=== PATIENT | female | born 1945 | race Caucasian/White ===

== ENCOUNTER 2019-06-16 12:23 | Inpatient (IN) | payer MEDICARE ==
[~2019-06-16] VITALS: Ht 162.6 cm; Wt 79.4 kg
[2019-06-16 14:36] VITALS: BP 146/69
[2019-06-16 15:43] LABS: BASOPHILS 0.6 % (0-2); EOSINOPHILS 3.2 % (0-7); HEMATOCRIT 34.7 % (36.0-48.0); HEMOGLOBIN 11.2 g/dL (12-16); IMMATURE GRANULOCYTES 0.2 % (0-5); LYMPHOCYTES 30.8 % (15-50); MCH 28.4 pg (26.0-34.0); MCHC 32.3 g/dL (31.0-37.0); MCV 87.8 fL (80.0-100.0); MEAN PLATELET VOLUME 9.4 fL (7.4-10.4); MONOCYTES 7.4 % (2-11); NEUTROPHILS 57.8 % (40-80); PLATELET COUNT 245 10x3/uL (130-400); RBC 3.95 10x6/uL (4.00-5.40); RDW 14.4 % (11.5-14.5); WBC 6.2 10x3/uL (4.8-10.8)
[2019-06-16 15:53] LABS: ANION GAP 9.5 mmol/L (8-16); CALCIUM 8.9 mg/dL (8.5-10.1); CARBON DIOXIDE 30.5 mmol/L (21.0-32.0); CREATININE - SERUM 0.8 mg/dL (0.6-1.3)
[2019-06-16 16:07] LABS: BILIRUBIN - TOTAL 0.24 mg/dL (0.2-1.3); PROTEIN - SERUM 6.1 g/dL (6.4-8.2)
[2019-06-16 17:39] LABS: APPEARANCE CLEAR (CLEAR); BILIRUBIN NEGATIVE (NEGATIVE); COLOR YELLOW (YELLOW); GLUCOSE NEGATIVE (NEGATIVE); KETONE NEGATIVE (NEGATIVE); NITRITE NEGATIVE (NEGATIVE); PROTEIN NEGATIVE (NEGATIVE); UROBILINOGEN NORMAL (NORMAL)
[2019-06-16 20:00] VITALS: BP 154/70
[2019-06-16] MEDS ORDERED: LEVOTHYROXINE75 MCG PO (20:17)
[2019-06-16] MEDS ORDERED: GLUCOPHAGE500 MG PO ×2 (20:19)
[2019-06-16] MEDS ORDERED: GABAPENTIN300 MG PO (20:20)
[2019-06-16] MEDS ORDERED: NEURONTIN600 MG PO (20:23)
[2019-06-16] MEDS ORDERED: CYMBALTA30 MG PO (20:24)
[2019-06-16 20:26] VITALS: BP 154/70; BMI 30.1
[2019-06-16] MEDS ORDERED: VALTREX1000 MG PO (21:00)
[2019-06-16] MEDS ORDERED: BAYER CHEWABLE81 MG PO (21:01)
[2019-06-17] VITALS: BP 138/52
[2019-06-17 04:00] VITALS: BP 142/48
--- NOTE | 2019-06-17 06:15 | NUR ---
ASSESSED AT THE TIME OF ADMISSION. SHE IS ALERT AND ORIENTED, ABLE TO VERBALIZE NEEDS. HER HAS REMAINED WITH HER, SLEEPING IN THE BEDSIDE CHAIR. WE HAVE GIVEN HER MORPHINE FOR PAIN OFTEN WE CAN BUT SHE STATES IT IS NOT CONTROLLING HER PAIN. THE PAIN IN HER LEFT LEG FROM THE ANKLE UP TO ABOVE THE KNEE IS HER WORSE PAIN AND SHE STATED IT HAS BEEN HURTING FOR MONTHS. WHEN ASKED IF SHE INJURIED IT SHE STATED NO. THE LEFT FOOT HAS 2-5 TOES BROKEN AND SHE SAID IT HURT BUT NOT BAD HER LEG. 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 AT THIS TIME SHE IS IN THE CHAIR SITTING WITH HER
[2019-06-17 06:28] LABS: BASOPHILS 0.7 % (0-2); EOSINOPHILS 3.1 % (0-7); HEMATOCRIT 36.8 % (36.0-48.0); HEMOGLOBIN 11.5 g/dL (12-16); IMMATURE GRANULOCYTES 0.3 % (0-5); LYMPHOCYTES 35.9 % (15-50); MCH 27.9 pg (26.0-34.0); MCHC 31.3 g/dL (31.0-37.0); MCV 89.3 fL (80.0-100.0); MEAN PLATELET VOLUME 10.2 fL (7.4-10.4); MONOCYTES 7.7 % (2-11); NEUTROPHILS 52.3 % (40-80); PLATELET COUNT 248 10x3/uL (130-400); RBC 4.12 10x6/uL (4.00-5.40); RDW 14.7 % (11.5-14.5); WBC 5.9 10x3/uL (4.8-10.8)
[2019-06-17 06:45] LABS: % SATURATION 11 % (15-55); IRON 40 ug/dl (35-150); TOTAL IRON BIND CAPACITY 342 ug/dl (260-445); UNSAT IRON BIND CAPACITY 302 ug/dl (150-375)
[2019-06-17 07:10] LABS: ANION GAP 11.6 mmol/L (8-16); CARBON DIOXIDE 27.9 mmol/L (21.0-32.0); CREATININE - SERUM 0.8 mg/dL (0.6-1.3); MAGNESIUM - SERUM 1.6 mg/dL (1.8-2.4); PHOSPHOROUS 3.8 mg/dL (2.5-4.9); POTASSIUM - SERUM 4.5 mmol/L (3.5-5.1); THYROID STIMULATING HORMONE 3.27 uIU/mL (0.36-3.74)
[2019-06-17 08:36] VITALS: BP 167/54
--- NOTE | 2019-06-17 08:37 | NUR ---
PATIENT SITTING IN CHAIR. LORENA AT BEDSIDE. BED ALARM REFUSAL WAIVER SIGNED. STATES PAIN IS A 7 OUT OF 10 ON THE PAIN SCALE. CL IN REACH. WCTM
--- NOTE | 2019-06-17 12:30 | NUR ---
LORENA IN ROOM. PATIENT SITTING ON SIDE OF BED TO EAT. TALKED WITH Stephanie CHI APN AND DR ROCHA ABOUT ANXIETY MED FOR PATIENT WHEN SHE GOES TO MRI. CL IN REACH. WCTM
[2019-06-17 13:31] VITALS: BP 138/43
[2019-06-17 16:42] VITALS: BP 157/65
--- NOTE | 2019-06-17 17:08 | NUR ---
PATIENT HAD ME FEEL ALONG HER LEFT UPPER FEMUR. BUMPS ALONG HER MUSCLE. REPORTED TO Stephanie CHI APN. CL IN REACH. IN ROOM. NO NEEDS AT THIS TIME.
--- NOTE | 2019-06-17 19:00 | NUR ---
BEDSIDE REPORT RECEIVED AND CARE OF PT ASSUMED. PT LYING IN LOW HAWLEY'S POSITION. IV TO LEFT HAND SALINE LOCKED. TELEMETRY IN PLACE PER ORDER. WILL MONITOR FOR NEEDS.
[2019-06-17 20:00] VITALS: BP 137/67
--- NOTE | 2019-06-17 20:15 | NUR ---
HS MEDICATIONS GIVEN. FSBS 122 THIS CHECK REQUIRING NO COVERAGE PER SLIDING SCALE.
--- NOTE | 2019-06-17 20:20 | NUR ---
HS SNACK GIVEN: X2 ORANGE SHERBET.
--- NOTE | 2019-06-17 22:39 | NUR ---
GAVE DILAUDID 2 MG PO PER REQUEST FOR PAIN. WILL MONITOR FOR EFFECTIVENESS.
--- NOTE | 2019-06-18 01:07 | NUR ---
PT YELLING AND CRYING OUT THAT PAIN MED ISN'T WORKING. PAGED ONESIMO HARRIS, NAPOLEON AND RECEIVED ONE TIME ORDER FOR DILAUDID 0.5MG IVP FOR BREAKTHROUGH PAIN. MED GIVEN...PT FEELING BETTER AND RESTING NOW. IS AT BEDSIDE.
--- NOTE | 2019-06-18 02:50 | NUR ---
GAVE DILAUDID 2 MG PO PER PRN ORDER, PER PT REQUEST FOR PAIN AT LEVEL 7/10. WILL MONITOR FOR EFFECTIVENESS. IS AT BEDSIDE.
[2019-06-18 04:00] VITALS: BP 124/56
--- NOTE | 2019-06-18 06:10 | NUR ---
PT C/O ITCHING. GAVE LOTION AND POWDER....DID NOT PROVIDE HER WITH RELEIF. PAGED ONESIMO HARRIS, NAPOLEON AND RECEIVED ORDER FOR BENADRYL 25 MG PO Q6 PRN.
[2019-06-18 06:17] LABS: BASOPHILS 0.5 % (0-2); EOSINOPHILS 2.8 % (0-7); HEMATOCRIT 34.8 % (36.0-48.0); HEMOGLOBIN 10.9 g/dL (12-16); IMMATURE GRANULOCYTES 0.2 % (0-5); LYMPHOCYTES 38.7 % (15-50); MCH 27.7 pg (26.0-34.0); MCHC 31.3 g/dL (31.0-37.0); MCV 88.5 fL (80.0-100.0); MEAN PLATELET VOLUME 9.7 fL (7.4-10.4); MONOCYTES 8.2 % (2-11); NEUTROPHILS 49.6 % (40-80); PLATELET COUNT 240 10x3/uL (130-400); RBC 3.93 10x6/uL (4.00-5.40); RDW 14.5 % (11.5-14.5); WBC 5.7 10x3/uL (4.8-10.8)
[2019-06-18 06:40] LABS: CALC OSMOLALITY 283 mosm/kg (275-300); CALCIUM 8.8 mg/dL (8.5-10.1); CARBON DIOXIDE 30.3 mmol/L (21.0-32.0); CHLORIDE - SERUM 106 mmol/L (98-107); CREATININE - SERUM 0.6 mg/dL (0.6-1.3); GLUCOSE 122 mg/dL (74-106); MAGNESIUM - SERUM 1.6 mg/dL (1.8-2.4); PHOSPHOROUS 4.2 mg/dL (2.5-4.9); POTASSIUM - SERUM 4.4 mmol/L (3.5-5.1); SODIUM 141 mmol/L (136-145); UREA NITROGEN 19 mg/dL (7-18); eGFR NON AFRICAN AMERICAN > 90 mL/min (90-120)
--- NOTE | 2019-06-18 08:03 | NUR ---
PATIENT LAYING ON LEFT SIDE. ASSISTED TO BATHROOM AND BACK TO BED. LORENA STEPPED OUT FOR A MINUTE. CL IN REACH. WCTM
[2019-06-18 08:41] VITALS: BP 123/57
[2019-06-18 12:06] VITALS: BP 136/71
[2019-06-18 17:36] VITALS: BP 128/67
--- NOTE | 2019-06-18 19:00 | NUR ---
BEDSIDE REPORT RECEIVED AND CARE OF PT ASSUMED. PT SITTING UP IN CHAIR AT THIS TIME. IV TO LEFT HAND SALINE LOCKED. TELEMETRY IN PLACE AND READING SR AT THIS ASSESSMENT. WILL MONITOR FOR NEEDS.
[2019-06-18 20:00] VITALS: BP 137/59
--- NOTE | 2019-06-18 20:41 | NUR ---
HS MEDICATIONS GIVEN TO INCLUDE DILALUDID 2 MG PO AND BENADRYL PO 25 MG PER REQUEST FOR PAIN MEDICATION.
--- NOTE | 2019-06-18 20:45 | NUR ---
FSBS 132 THIS CHECK REQUIRING NO COVERAGE PER SLIDING SCALE.
--- NOTE | 2019-06-18 23:36 | NUR ---
IV IN LEFT HAND LEAKING. REMOVED WITH CATHETER TIP INTACT AND REPLACED IV TO LEFT AC USING 22 GUAGE CATHETER.
[2019-06-19] VITALS: BP 142/60
[2019-06-19 04:00] VITALS: BP 133/54
--- NOTE | 2019-06-19 04:21 | NUR ---
PT SITTING UP ON SIDE OF BED CRYING IN PAIN.....EVERY 2 HOURS SHE IS SITTING UP CRYING. GAVE DEMERAL 25 MG IVP PER PRN ORDER PER Q 2 HR PRN DOSAGE.
--- NOTE | 2019-06-19 06:11 | NUR ---
PT ASSISTED WITH SHOWER AND ALL LINENS AND GOWN CHANGED.
[2019-06-19 06:20] LABS: BASOPHILS 0.8 % (0-2); EOSINOPHILS 2.4 % (0-7); HEMATOCRIT 34.1 % (36.0-48.0); HEMOGLOBIN 10.7 g/dL (12-16); IMMATURE GRANULOCYTES 0.2 % (0-5); LYMPHOCYTES 29.7 % (15-50); MCH 28.1 pg (26.0-34.0); MCHC 31.4 g/dL (31.0-37.0); MCV 89.5 fL (80.0-100.0); MEAN PLATELET VOLUME 9.8 fL (7.4-10.4); MONOCYTES 10.3 % (2-11); NEUTROPHILS 56.6 % (40-80); PLATELET COUNT 235 10x3/uL (130-400); RBC 3.81 10x6/uL (4.00-5.40); RDW 14.8 % (11.5-14.5); WBC 5.3 10x3/uL (4.8-10.8)
[2019-06-19 06:34] LABS: CALC OSMOLALITY 285 mosm/kg (275-300); CALCIUM 8.8 mg/dL (8.5-10.1); CARBON DIOXIDE 32.5 mmol/L (21.0-32.0); CHLORIDE - SERUM 106 mmol/L (98-107); CREATININE - SERUM 0.7 mg/dL (0.6-1.3); GLUCOSE 136 mg/dL (74-106); PHOSPHOROUS 4.5 mg/dL (2.5-4.9); POTASSIUM - SERUM 4.2 mmol/L (3.5-5.1); SODIUM 141 mmol/L (136-145); UREA NITROGEN 21 mg/dL (7-18); eGFR NON AFRICAN AMERICAN 87 mL/min (90-120)
[2019-06-19 08:11] VITALS: BP 131/46
--- NOTE | 2019-06-19 08:21 | NUR ---
ASSESSMENT DONE. DENIES NEEDS. AT SIDE.
--- NOTE | 2019-06-19 10:34 | NUR ---
I have reviewed this patient and I concur with the Shift Assessment completed by the Licensed Practical Nurse today this shift.
[2019-06-19 13:46] VITALS: Ht 162.6 cm; Wt 79.4 kg
[2019-06-19 14:04] VITALS: BP 132/61
[2019-06-19 16:18] VITALS: BP 146/70
--- NOTE | 2019-06-19 19:00 | NUR ---
BEDSIDE REPORT RECEIVED AND CARE OF PT ASSUMED. PT SITTING UP ON SIDE OF BED VISITING WITH FAMILY MEMBERS. IV TO LEFT AC SALINE LOCKED. TELEMETRY IN PLACE PER ORDER.
--- NOTE | 2019-06-19 19:55 | NUR ---
HS MEDICATIONS GIVEN TO INCLUDE DEMERAL 25 MG IVP PER REQUEST FOR PAIN.
[2019-06-19 20:00] VITALS: BP 115/52
--- NOTE | 2019-06-19 23:02 | NUR ---
GAVE DEMERAL 25 MG IVP AND BENADRYL 25 MG PO PER PT REQUEST FOR PAIN. WILL MONITOR FOR EFFECTIVENESS.
[2019-06-20] VITALS: BP 137/63
[2019-06-20 04:00] VITALS: BP 116/49
[2019-06-20 06:41] LABS: BASOPHILS 0.7 % (0-2); EOSINOPHILS 2.1 % (0-7); HEMOGLOBIN 10.4 g/dL (12-16); IMMATURE GRANULOCYTES 0.2 % (0-5); LYMPHOCYTES 34.3 % (15-50); MCHC 31.5 g/dL (31.0-37.0); MCV 88.7 fL (80.0-100.0); MEAN PLATELET VOLUME 9.6 fL (7.4-10.4); MONOCYTES 12.1 % (2-11); NEUTROPHILS 50.6 % (40-80); PLATELET COUNT 228 10x3/uL (130-400); RBC 3.72 10x6/uL (4.00-5.40); RDW 14.7 % (11.5-14.5); WBC 5.4 10x3/uL (4.8-10.8)
[2019-06-20 06:47] LABS: CALC OSMOLALITY 288 mosm/kg (275-300); CALCIUM 8.9 mg/dL (8.5-10.1); CARBON DIOXIDE 31.4 mmol/L (21.0-32.0); CHLORIDE - SERUM 106 mmol/L (98-107); CREATININE - SERUM 0.7 mg/dL (0.6-1.3); GLUCOSE 118 mg/dL (74-106); MAGNESIUM - SERUM 1.8 mg/dL (1.8-2.4); PHOSPHOROUS 4.5 mg/dL (2.5-4.9); POTASSIUM - SERUM 4.3 mmol/L (3.5-5.1); SODIUM 143 mmol/L (136-145); UREA NITROGEN 20 mg/dL (7-18); eGFR NON AFRICAN AMERICAN 87 mL/min (90-120)
--- NOTE | 2019-06-20 08:00 | NUR ---
ASSESSMENT PER FLOW SHEET. PT IS WITHOUT DISTRESS.SHE HAS SOME ANXIETY. AT BEDSIDE.CALL LIGHT IN REACH
[2019-06-20 08:01] VITALS: BP 141/65
[2019-06-20 13:57] VITALS: BP 124/61; BP 154/57
[2019-06-20 15:53] VITALS: BP 137/58
[2019-06-20 20:52] VITALS: BP 147/52
--- NOTE | 2019-06-21 01:12 | NUR ---
I have reviewed this patient and I concur with the Shift Assessment completed by the Licensed Practical Nurse today this shift.
--- NOTE | 2019-06-21 03:41 | NUR ---
IV INFULTRATED. NEW IV SITED LT HAND 22G. ATTEMPTSX1. PT TOLERATED WELL. WILL CONTINUE PLAN OF CARE. CALL LIGHT IN REACH. BED LOWERED AND LOCKED. AT BEDSIDE.
--- NOTE | 2019-06-21 04:50 | NUR ---
PT RESTING IN BED. EYES CLOSED. AROUSES TO VERBAL STIMULI. PT STATES NO PROBLEMS AT THIS TIME. IV SITE LT HAND DRESSING CLEAN DRY AND INTACT. NO SIGNS OF INFECTION. SKIN CLEAN DRY AND INTACT. BOWEL SOUNDS ACTIVE. LUNG SOUNDS CLEAR. NO LOWER LEG SWELLING PRESENT. WILL CONTINUE PLAN OF CARE. CALL LIGHT IN REACH. BED LOWERED AND LOCKED. BED RAILS UPX2. AT BEDSIDE.
[2019-06-21 05:14] VITALS: BP 122/60
[2019-06-21 06:49] LABS: BASOPHILS 0.4 % (0-2); EOSINOPHILS 2.1 % (0-7); HEMATOCRIT 33.5 % (36.0-48.0); HEMOGLOBIN 10.5 g/dL (12-16); IMMATURE GRANULOCYTES 0.2 % (0-5); LYMPHOCYTES 29.2 % (15-50); MCH 27.9 pg (26.0-34.0); MCHC 31.3 g/dL (31.0-37.0); MCV 89.1 fL (80.0-100.0); MEAN PLATELET VOLUME 9.8 fL (7.4-10.4); MONOCYTES 9.2 % (2-11); NEUTROPHILS 58.9 % (40-80); PLATELET COUNT 255 10x3/uL (130-400); RBC 3.76 10x6/uL (4.00-5.40); RDW 14.8 % (11.5-14.5); WBC 5.7 10x3/uL (4.8-10.8)
[2019-06-21 07:13] LABS: CALC OSMOLALITY 286 mosm/kg (275-300); CALCIUM 8.9 mg/dL (8.5-10.1); CHLORIDE - SERUM 105 mmol/L (98-107); CREATININE - SERUM 0.6 mg/dL (0.6-1.3); GLUCOSE 138 mg/dL (74-106); MAGNESIUM - SERUM 1.7 mg/dL (1.8-2.4); PHOSPHOROUS 4.2 mg/dL (2.5-4.9); POTASSIUM - SERUM 3.8 mmol/L (3.5-5.1); SODIUM 143 mmol/L (136-145); eGFR NON AFRICAN AMERICAN > 90 mL/min (90-120)
[2019-06-21 07:15] LABS: UREA NITROGEN 13 mg/dL (7-18)
--- NOTE | 2019-06-21 08:00 | NUR ---
ASSESSMENT PER FLOW SHEET. PT IS WITHOUT DISTRESS. PAIN MEDS ORDERED PER MAR FOR PAIN IN LOWER BACK AND LEG. AT BEDSIDE.
[2019-06-21 08:57] VITALS: BP 161/59
--- NOTE | 2019-06-21 09:29 | MORECARE ---
CASE MANAGEMENT DISCHARGE SUMMARY PATIENT: VIOLETTE MOREJON UNIT: [id number] ADM DATE: 06/17/19 AGE: 73 : 45 SEX: F ROOM/BED: D.2229 AUTHOR: CHRIS MOONEY PHYSICIAN: REFERRING PHYSICIAN: MORRIS SOMERS MD DATE OF SERVICE: 06/21/19 Discharge Plan Patient Name: VIOLETTE MOREJON [facility] [facility] 1945 Planned Disposition: Home with Home Health Anticipated Discharge Date: Discharge Date: Expected LOS: Initial Reviewer: [email or web address] Initial Review Date: 06/21/2019 Generated: 06/21/19 10:28 am Coverage Notice Reviewer: [id number] Ann Reyes Notice Issued Date-Time: 06/17/2019 11:10 Notice Type: Medicare Outpatient Observation Notice Notice Delivered To: Patient Relationship to Patient: Self Track Repair Person Name: Delivery Method: HAND - Hand Delivered Mary Days: Prior Verbal Notification: Recipient Understood Notice: Yes Recipient Signature: Yes Med Rec Note Co-signed by Attending: Coverage Notice Comment: Patient Name: VIOLETTE MOREJON Page [phone] at 0929 All edits/amendments must be made on the electronic document DICTATION DATE: 06/21/19927 COTTON BROKER: DES 06/21/19927 RPT#: [id number] DC DATE: STATUS: ADM IN [facility] [address] [place] [address] END OF REPORT
--- NOTE | 2019-06-21 09:36 | MORECARE ---
CASE MANAGEMENT DISCHARGE SUMMARY PATIENT: VIOLETTE VIDAL UNIT: [id number] ADM DATE: 06/17/19 AGE: 73 : 45 SEX: F ROOM/BED: D.2229 AUTHOR: CHRIS MOONEY PHYSICIAN: REFERRING PHYSICIAN: MORRIS SOMERS MD DATE OF SERVICE: 06/21/19 Discharge Plan Patient Name: VIOLETTE VIDAL Facility[facility]:[place] : 1945 Planned Disposition: Home with Home Health Anticipated Discharge Date: Discharge Date: Expected LOS: Initial Reviewer: [email or web address] Initial Review Date: 06/21/2019 Generated: 06/21/19 10:36 am Comments DCP- Discharge Planning Updated by [id number]: Nataliia Ochoa on 06/21/19 8:[address] Patient Name: VIOLETTE VIDAL Admission Status: ER Accout number: [id number] Admission Date: 06-17-2019 : 1945 Admission Diagnosis: Attending: MORRIS SOMERS Current LOS: 4 Anticipated DC Date: Planned Disposition: Home with Home Health Primary Insurance: AETNA MEDICARE PPO or HMO Discharge Planning Comments: CM met with patient to complete initial dc planning assessment. CM educated patient on the CM role and verbal consent given by patient to complete assessment. Patient lives at home with her spouse. Patient is having lumbar surgery tomorrow and is unsure of needs. States she would like to go home and resume [facility], but if unable to go home would like rehab at [facility]. She was at [place] in April of last year for 11 days. Patient denied other discharge needs at this time. States she has a walker at home and they have borrowed a wheelchair. She also has a walking boot in the room, understands she is to heel weight bear on foot at this time. CM will continue to follow and will assist as needed with dc plans/needs. Apartment Rental Agent: Nataliia Ochoa DCPIA - Discharge Planning Initial Assessment Updated by [email or web address]: Nataliia Ochoa on 06/21/19 9:31 am * Is the patient Alert and Oriented? Yes * How many steps to enter\exit or inside your home? 1/0 * PCP Mickey Perez * Pharmacy [place] [address] * Preadmission Environment Home with Family * ADLs Partial Dependent * Partial ADLs (Assistance needed) Ambulation * Equipment Cane Walker Wheelchair * List name and contact numbers for known caregivers / representatives who currently or will assist patient after discharge: Rik Vidal - spouse - [phone] or [phone] Traci Juares - DTR - [phone] * Verbal permission to speak to the caregivers and representatives has been obtained from the patient. Yes * Community resources currently utilized Home Health * Please name any agencies selected above. [facility] * Additional services required to return to the preadmission environment? Yes * Can the patient safely return to the preadmission environment? Yes * Has this patient been hospitalized within the prior 30 days at any hospital? No Coverage Notice Reviewer: [email or web address] Ann Reyes Notice Issued Date-Time: 06/17/2019 11:10 Notice Type: Medicare Outpatient Observation Notice Notice Delivered To: Patient Relationship to Patient: Self Plant Pathologist Name: Delivery Method: HAND - Hand Delivered Mary Days: Prior Verbal Notification: Recipient Understood Notice: Yes Recipient Signature: Yes Med Rec Note Co-signed by Attending: Coverage Notice Comment: Reviewer: [id number] - Nataliia Ochoa Notice Issued Date-Time: 06/21/2019 9:34 Notice Type: Patient Choice Letter Notice Delivered To: Patient Relationship to Patient: Self Plant Pathologist Name: Delivery Method: HAND - Hand Delivered Mary Days: Prior Verbal Notification: Recipient Understood Notice: Yes Recipient Signature: Yes Med Rec Note Co-signed by Attending: Coverage Notice Comment: VICKI FOR [facility] OR [facility] FOR SNF Last DP export: 06/21/19 8:29 am Patient Name: VIOLETTE VIDAL Page [phone] at 0936 All edits/amendments must be made on the electronic document DICTATION DATE: 06/21/19935 [place] DIRECTOR: DES 06/21/19935 RPT#: [id number] DC DATE: STATUS: ADM IN [facility] [address] [place] [address] END OF REPORT
[2019-06-21 11:54] VITALS: BP 143/62
[2019-06-21 16:15] VITALS: BP 135/67
--- NOTE | 2019-06-21 16:17 | NUR ---
SLEEPING ON RIGHT SIDE,WITHOUT SIGNS OF DISTRESS.
--- NOTE | 2019-06-21 18:40 | NUR ---
PAIN MEDS ORDERED PER MAR. PT BACK TO BED. REMAINS AT BEDSIDE. CONT PLAN OF CARE
[2019-06-21 19:30] VITALS: BP 156/73
[2019-06-22 00:30] VITALS: BP 140/78
--- NOTE | 2019-06-22 03:22 | NUR ---
PATIENT SITTING UP IN BED WITH AT BEDSIDE. PATIENT COMPLAINS OF PAIN 8 OUT OF 10 IN LEFT LEG. IV TO L FA, SL, NO REDNESS OR SWELLING. BED RAILS X2. BEDSIDE TABLE AND CALL LIGHT WITHIN REACH.
[2019-06-22 05:28] LABS: BASOPHILS 0.6 % (0-2); HEMATOCRIT 31.9 % (36.0-48.0); HEMOGLOBIN 9.9 g/dL (12-16); IMMATURE GRANULOCYTES 0.2 % (0-5); LYMPHOCYTES 28.5 % (15-50); MCH 27.7 pg (26.0-34.0); MCV 89.4 fL (80.0-100.0); MEAN PLATELET VOLUME 9.8 fL (7.4-10.4); MONOCYTES 11.2 % (2-11); NEUTROPHILS 56.5 % (40-80); PLATELET COUNT 251 10x3/uL (130-400); RBC 3.57 10x6/uL (4.00-5.40); WBC 5.3 10x3/uL (4.8-10.8)
[2019-06-22 05:30] VITALS: BP 139/58
[2019-06-22 06:00] LABS: ALBUMIN 2.5 g/dL (3.4-5.0); ALKALINE PHOSPHATASE 107 U/L (46-116); ALT (SGPT) 20 U/L (10-68); BILIRUBIN - TOTAL 0.27 mg/dL (0.2-1.3); CALC OSMOLALITY 288 mosm/kg (275-300); CALCIUM 8.7 mg/dL (8.5-10.1); CARBON DIOXIDE 34.5 mmol/L (21.0-32.0); CHLORIDE - SERUM 107 mmol/L (98-107); CREATININE - SERUM 0.7 mg/dL (0.6-1.3); GLUCOSE 106 mg/dL (74-106); POTASSIUM - SERUM 3.7 mmol/L (3.5-5.1); PROTEIN - SERUM 5.3 g/dL (6.4-8.2); SODIUM 144 mmol/L (136-145); eGFR NON AFRICAN AMERICAN 87 mL/min (90-120)
[2019-06-22 06:01] LABS: UREA NITROGEN 19 mg/dL (7-18)
--- NOTE | 2019-06-22 08:08 | NUR ---
PATIENT RECIEVED RESTING IN BED WITH SEVERE PAIN REPORTED TO BACK THAT RADIATES DOWN LEFT LEG. DEMEROL 25 MG GIVEN IV WITH PATIENT RESTING QUIETLY AFTER DEMEROL GIVEN. CL IN REACH, AT SIDE.
[2019-06-22 12:31] VITALS: BP 132/53
--- NOTE | 2019-06-22 16:19 | NUR ---
EQUAL STRENGHTS LOWER EXTREMETIES NO NUMBNESS OR TINGLING REPORTED
[2019-06-22 16:54] VITALS: BP 158/67
--- NOTE | 2019-06-22 16:56 | NUR ---
PATIENT RECIEVED FROM RECOVERY WITH VITAL SIGNS STABLE. DRESSING WITH 0.5 CM BLOODY SPOT TO CENTER OF ISLAND DRESSING MID BACK. PATIETN TOLERATING ICE CHIPS, GOOD FEELING AND PULSES TO BLE. BUT PATIENT REPORTS HEAVY FEELING.
[2019-06-22 19:30] VITALS: BP 144/64
[2019-06-22 22:09] LABS: ANION GAP 6.4 mmol/L (8-16); CALCIUM 8.2 mg/dL (8.5-10.1); CREATININE - SERUM 0.9 mg/dL (0.6-1.3); POTASSIUM - SERUM 4.4 mmol/L (3.5-5.1)
[2019-06-23 00:30] VITALS: BP 138/68
[2019-06-23 05:30] VITALS: BP 142/70
[2019-06-23 06:28] LABS: BASOPHILS 0.3 % (0-2); EOSINOPHILS 0.4 % (0-7); HEMATOCRIT 31.8 % (36.0-48.0); HEMOGLOBIN 10.1 g/dL (12-16); IMMATURE GRANULOCYTES 0.4 % (0-5); LYMPHOCYTES 19.5 % (15-50); MCHC 31.8 g/dL (31.0-37.0); MCV 88.1 fL (80.0-100.0); MEAN PLATELET VOLUME 9.3 fL (7.4-10.4); MONOCYTES 10.4 % (2-11); PLATELET COUNT 253 10x3/uL (130-400); RBC 3.61 10x6/uL (4.00-5.40); RDW 15.2 % (11.5-14.5)
[2019-06-23 06:47] LABS: WBC 7.7 10x3/uL (4.8-10.8)
[2019-06-23 06:57] LABS: ALBUMIN 2.6 g/dL (3.4-5.0); ALKALINE PHOSPHATASE 112 U/L (46-116); ALT (SGPT) 20 U/L (10-68); BILIRUBIN - TOTAL 0.35 mg/dL (0.2-1.3); CALC OSMOLALITY 285 mosm/kg (275-300); CALCIUM 8.8 mg/dL (8.5-10.1); CARBON DIOXIDE 31.8 mmol/L (21.0-32.0); CHLORIDE - SERUM 107 mmol/L (98-107); CREATININE - SERUM 0.7 mg/dL (0.6-1.3); POTASSIUM - SERUM 4.2 mmol/L (3.5-5.1); PROTEIN - SERUM 5.5 g/dL (6.4-8.2); SODIUM 142 mmol/L (136-145); UREA NITROGEN 20 mg/dL (7-18); eGFR NON AFRICAN AMERICAN 87 mL/min (90-120)
[2019-06-23 07:01] LABS: GLUCOSE 91 mg/dL (74-106)
--- NOTE | 2019-06-23 08:15 | NUR ---
PATIENT SITTING UP IN CHAIR EATING BREAKFAST WITH NO COMPLAINTS OR SIGNS OF DISTRESS. IV INTACT. FAMILY AT BEDSIDE. CALL LIGHT WITHIN REACH.
[2019-06-23 09:24] VITALS: BP 117/48
--- NOTE | 2019-06-23 10:06 | MORECARE ---
CASE MANAGEMENT DISCHARGE SUMMARY PATIENT: VIOLETTE VIDAL UNIT: [id number] ADM DATE: 06/17/19 AGE: 73 : 45 SEX: F ROOM/BED: D.2229 AUTHOR: CHRIS MOONEY PHYSICIAN: REFERRING PHYSICIAN: MORRIS SOMERS MD DATE OF SERVICE: 06/23/19 Discharge Plan Patient Name: VIOLETTE VIDAL Facility: [facility]:[place] : 1945 Planned Disposition: Home with Home Health Anticipated Discharge Date: Discharge Date: Expected LOS: Initial Reviewer: [email or web address] Initial Review Date: 06/21/2019 Generated: 06/23/19 11:06 am Comments DCP- Discharge Planning Updated by [email or web address]: Nataliia Ochoa on 06/21/19 8:[address] Patient Name: VIOLETTE VIDAL Admission Status: ER Accout number: [id number] Admission Date: 06-17-2019 : 1945 Admission Diagnosis: Attending: MORRIS SOMERS Current LOS: 4 Anticipated DC Date: Planned Disposition: Home with Home Health Primary Insurance: AETNA MEDICARE PPO or HMO Discharge Planning Comments: CM met with patient to complete initial dc planning assessment. CM educated patient on the CM role and verbal consent given by patient to complete assessment. Patient lives at home with her spouse. Patient is having lumbar surgery tomorrow and is unsure of needs. States she would like to go home and resume [facility], but if unable to go home would like rehab at [facility]. She was at [place] in April of last year for 11 days. Patient denied other discharge needs at this time. States she has a walker at home and they have borrowed a wheelchair. She also has a walking boot in the room, understands she is to heel weight bear on foot at this time. CM will continue to follow and will assist as needed with dc plans/needs. Web Merchandiser: Nataliia Ochoa DCPIA - Discharge Planning Initial Assessment Updated by [email or web address]: Nataliia Ochoa on 06/21/19 9:31 am * Is the patient Alert and Oriented? Yes * How many steps to enter\exit or inside your home? 1/0 * PCP Mickey Perez * Pharmacy [place] [address] * Preadmission Environment Home with Family * ADLs Partial Dependent * Partial ADLs (Assistance needed) Ambulation * Equipment Cane Walker Wheelchair * List name and contact numbers for known caregivers / representatives who currently or will assist patient after discharge: Rik Vidal - spouse - [phone] or [phone] Traci Juares - DTR - [phone] * Verbal permission to speak to the caregivers and representatives has been obtained from the patient. Yes * Community resources currently utilized Home Health * Please name any agencies selected above. [facility] * Additional services required to return to the preadmission environment? Yes * Can the patient safely return to the preadmission environment? Yes * Has this patient been hospitalized within the prior 30 days at any hospital? No External Providers External Provider: [facility] Next Contact Date: Service Request Date: Service Type: Resolution: Reviewer: Comments: Coverage Notice Reviewer: [email or web address] Ann Reyes Notice Issued Date-Time: 06/17/2019 11:10 Notice Type: Medicare Outpatient Observation Notice Notice Delivered To: Patient Relationship to Patient: Self Congressional Aide Name: Delivery Method: HAND - Hand Delivered Mary Days: Prior Verbal Notification: Recipient Understood Notice: Yes Recipient Signature: Yes Med Rec Note Co-signed by Attending: Coverage Notice Comment: Reviewer: [id number] - Nataliia Ochoa Notice Issued Date-Time: 06/21/2019 9:34 Notice Type: Patient Choice Letter Notice Delivered To: Patient Relationship to Patient: Self Congressional Aide Name: Delivery Method: HAND - Hand Delivered Mary Days: Prior Verbal Notification: Recipient Understood Notice: Yes Recipient Signature: Yes Med Rec Note Co-signed by Attending: Coverage Notice Comment: VICKI FOR [facility] OR [facility] FOR SNF Last DP export: 06/21/19 8:36 am Patient Name: VIOLETTE VIDAL Page [phone] at 1006 All edits/amendments must be made on the electronic document DICTATION DATE: 06/23/19 1006 PRINCIPAL JAVA SOFTWARE ENGINEER: DES 06/23/19 1006 RPT#: [id number] DC DATE: STATUS: ADM IN [facility] [address] [place] [address] END OF REPORT
--- NOTE | 2019-06-23 12:32 | NUR ---
Nutrition follow-up: Pt s/p lumbar keith 06/22 Diet: ADA consistent CHO PO Intake ~75% average of meals Labs reviewed Wt: 175# RDN following.
[2019-06-23 13:41] VITALS: BP 125/67
[2019-06-23] MEDS ORDERED: ROBAXIN PO (14:08)
[2019-06-23] MEDS ORDERED: HYDROCODON-ACE1 EAC7 PO (14:08)
--- NOTE | 2019-06-23 15:55 | NUR ---
PATIENT RECIEVED DC INSTRUCTIONS AND PRESCRIPTION. VERBALIZED UNDERSTANDING. NO QUESTIONS AT THIS TIME. IV REMOVED WITH CATH TIP INTACT. FAMILY AT BEDSIDE. ESCORTED PATIENT WITH PERSONAL BELONGINGS DOWN TO PRIVATE VEHICLE WITH FAMILY VIA WC.
[2019-06-23 17:16] VITALS: BP 124/50
--- NOTE | 2019-06-25 12:30 | MORECARE ---
CASE MANAGEMENT DISCHARGE SUMMARY PATIENT: VIOLETTE VIDAL UNIT: [id number] ADM DATE: 06/17/19 AGE: 73 : 45 SEX: F ROOM/BED: D.2229 AUTHOR: CHRIS MOONEY PHYSICIAN: REFERRING PHYSICIAN: MORRIS SOMERS MD DATE OF SERVICE: 06/25/19 Discharge Plan Patient Name: VIOLETTE VIDAL Facility: [facility]:[place] : 1945 Planned Disposition: Home with Home Health Anticipated Discharge Date: Discharge Date: 06/23/2019 Expected LOS: Initial Reviewer: [email or web address] Initial Review Date: 06/21/2019 Generated: 06/25/19 1:29 pm Comments DCP- Discharge Planning Updated by [email or web address]: Nataliia Ochoa on 06/21/19 8:[address] Patient Name: VIOLETTE VIDAL Admission Status: ER Accout number: [id number] Admission Date: 06-17-2019 : 1945 Admission Diagnosis: Attending: MORRIS SOMERS Current LOS: 4 Anticipated DC Date: Planned Disposition: Home with Home Health Primary Insurance: AETNA MEDICARE PPO or HMO Discharge Planning Comments: CM met with patient to complete initial dc planning assessment. CM educated patient on the CM role and verbal consent given by patient to complete assessment. Patient lives at home with her spouse. Patient is having lumbar surgery tomorrow and is unsure of needs. States she would like to go home and resume [facility], but if unable to go home would like rehab at [facility]. She was at [place] in April of last year for 11 days. Patient denied other discharge needs at this time. States she has a walker at home and they have borrowed a wheelchair. She also has a walking boot in the room, understands she is to heel weight bear on foot at this time. CM will continue to follow and will assist as needed with dc plans/needs. Underwriting Operations Manager: Nataliia Ochoa DCPIA - Discharge Planning Initial Assessment Updated by [email or web address]: Nataliia Ochoa on 06/21/19 9:31 am * Is the patient Alert and Oriented? Yes * How many steps to enter\exit or inside your home? 1/0 * PCP Mickey Perez * Pharmacy [place] [address] * Preadmission Environment Home with Family * ADLs Partial Dependent * Partial ADLs (Assistance needed) Ambulation * Equipment Cane Walker Wheelchair * List name and contact numbers for known caregivers / representatives who currently or will assist patient after discharge: Rik Vidal - spouse - [phone] or [phone] Traci Juares - DTR - [phone] * Verbal permission to speak to the caregivers and representatives has been obtained from the patient. Yes * Community resources currently utilized Home Health * Please name any agencies selected above. [facility] * Additional services required to return to the preadmission environment? Yes * Can the patient safely return to the preadmission environment? Yes * Has this patient been hospitalized within the prior 30 days at any hospital? No Coverage Notice Reviewer: [email or web address] Ann Reyes Notice Issued Date-Time: 06/17/2019 11:10 Notice Type: Medicare Outpatient Observation Notice Notice Delivered To: Patient Relationship to Patient: Self Cellar Packer Name: Delivery Method: HAND - Hand Delivered Mary Days: Prior Verbal Notification: Recipient Understood Notice: Yes Recipient Signature: Yes Med Rec Note Co-signed by Attending: Coverage Notice Comment: Reviewer: [id number] Ann Ochoa Notice Issued Date-Time: 06/21/2019 9:34 Notice Type: Patient Choice Letter Notice Delivered To: Patient Relationship to Patient: Self Cellar Packer Name: Delivery Method: HAND - Hand Delivered Mary Days: Prior Verbal Notification: Recipient Understood Notice: Yes Recipient Signature: Yes Med Rec Note Co-signed by Attending: Coverage Notice Comment: VICKI FOR [facility] OR [facility] FOR SNF Reviewer: [email or web address] Ann Ochoa Notice Issued Date-Time: 06/23/2019 14:44 Notice Type: IM Discharge Notice Notice Delivered To: Patient Relationship to Patient: Self Cellar Packer Name: Delivery Method: HAND - Hand Delivered Mary Days: Prior Verbal Notification: Recipient Understood Notice: Yes Recipient Signature: Yes Med Rec Note Co-signed by Attending: Coverage Notice Comment: IMM explained, signed, given, copy placed in MR Last DP export: 06/23/19 9:06 a Patient Name: VIOLETTE VIDAL Page [phone] at 1230 All edits/amendments must be made on the electronic document DICTATION DATE: 06/25/199 3RD PRESSMAN: DES 06/25/19 1229 RPT#: [id number] DC DATE:06/23/19 STATUS: DIS IN [facility] [address] [place] [address] END OF REPORT
--- NOTE | 2019-06-29 12:52 | OP ---
PATIENT NAME: VIOLETTE MOREJON MEDICAL RECORD: [id number] :[birth year] LOCATION:D.MS [place] ADMISSION DATE:06/17/19 SURGEON: CLEMENTE MORENO MD DATE OF OPERATION: 06/22/2019 DATE OF SERVICE: 06/22/2019 PREOPERATIVE DIAGNOSES: Lumbar spinal stenosis and foraminal stenosis, L4-L5, left, with left L5 radiculopathy. POSTOPERATIVE DIAGNOSES: Lumbar spinal stenosis and foraminal stenosis, L4-L5, left, with left L5 radiculopathy. PROCEDURES: Lumbar laminotomy, medial facetectomy and foraminotomy at L4-L5 on the left with METRx retractor. SURGEON: Clemente Moreno MD DESCRIPTION AND TECHNIQUE: After induction of general endotracheal anesthesia, the patient was rolled prone on a Bassam frame. Lumbar spine was prepped and draped in the usual sterile fashion. Fluoroscopic x-ray and spinal needle localized the L4-L5 interspace on the left side. After infiltration of 1:100,000 epinephrine with 1% lidocaine, a stab incision was created with a #11 blade. Series of dilators were used to advance a METRx retractor at the L4-L5 interspace on the left side. Level was confirmed with fluoroscopic x-ray. A microscope and Midas Jamie drill were used to perform laminotomy, medial facetectomy and foraminotomy L4-L5 on the left. Hypertrophied ligamentum flavum was removed with Cloward rongeurs. This decompressed the L4 and L5 nerve roots well. Meticulous hemostasis was maintained throughout the wound. Wound was irrigated with copious amounts of Ancef irrigant solution. The fascia was closed with 2-0 Vicryl suture, the subdermal layer was closed with a 4-0 Vicryl suture. The skin was closed with apple. A sterile dressing was applied to the wound. The patient was awakened in good condition and taken to recovery. All counts were reported as correct. Estimated blood loss was minimal. TRANSINT:[id number] Voice Confirmation ID: [id number] DOCUMENT ID: [id number] CLEMENTE MORENO MD at 1252 CC: [id number] DICTATION DATE: 06/29/19 1057 INDUSTRIAL EDITOR: 06/29/19 1212 DIS IN 06/23/19 [facility] [address] [facility] [place] [place] [address]
== END 2019-06-23 15:55 | disposition home health service (06) | DRG 517 ==
LOC: D.ER 12:23 → D.MS 18:46 → OBSVTIME 20:16 → D.MS 06-17 16:08
PROVIDERS: Family Medicine; Neurological Surgery; ADMIT Family Medicine; ATTEND Family Medicine
PROC: 01NB4ZZ Release Lumbar Nerve, Percutaneous Endoscopic Approach (ICD-10-PCS; principal; 2019-06-22 12:00)
DX: M48.061 Spinal stenosis, lumbar region without neurogenic claudication (principal); S92.325A Nondisplaced fracture of second metatarsal bone, left foot, initial encounter for closed fracture; S92.335A Nondisplaced fracture of third metatarsal bone, left foot, initial encounter for closed fracture; S92.345A Nondisplaced fracture of fourth metatarsal bone, left foot, initial encounter for closed fracture; S92.355A Nondisplaced fracture of fifth metatarsal bone, left foot, initial encounter for closed fracture; E11.9 Type 2 diabetes mellitus without complications; E03.9 Hypothyroidism, unspecified; K21.9 Gastro-esophageal reflux disease without esophagitis; M54.9 Dorsalgia, unspecified; Z85.41 Personal history of malignant neoplasm of cervix uteri; D50.9 Iron deficiency anemia, unspecified; E83.42 Hypomagnesemia; M85.80 Other specified disorders of bone density and structure, unspecified site; M19.079 Primary osteoarthritis, unspecified ankle and foot; W19.XXXA Unspecified fall, initial encounter; M47.26 Other spondylosis with radiculopathy, lumbar region

== ENCOUNTER 2019-06-24 04:20 | Emergency (ER) | payer MEDICARE ==
[~2019-06-24] VITALS: Ht 162.6 cm; Wt 79.4 kg
[~2019-06-24 04:20] MED LIST: BAYER CHEWABLE81 MG PO; CYMBALTA30 MG PO; GABAPENTIN300 MG PO; GLUCOPHAGE500 MG PO; HYDROCODON-ACE1 EAC7 PO; LEVOTHYROXINE75 MCG PO; NEURONTIN600 MG PO; ROBAXIN PO; VALTREX1000 MG PO
[2019-06-24 04:38] VITALS: BP 134/51; Ht 162.6 cm; Wt 79.4 kg
== END 2019-06-24 06:20 | disposition home or self-care (01) ==
LOC: D.ER 04:20
DX: G89.18 Other acute postprocedural pain (principal); E11.9 Type 2 diabetes mellitus without complications; Z79.84 Long term (current) use of oral hypoglycemic drugs; E07.9 Disorder of thyroid, unspecified